=== PATIENT | female | born 2005 ===

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

== ENCOUNTER 2024-01-29 20:29 | Emergency (ER) | payer BC ==
[~2024-01-29] VITALS: Ht 152.4 cm; Wt 50.0 kg
[2024-01-29 20:44] VITALS: BP 100/63; TEMP 98
[2024-01-29] MEDS ORDERED: PREDNISONE20 MG PO (21:22)
[2024-01-29] MEDS ORDERED: ATARAX 25MG25 MG/TAB PO (21:22)
[2024-01-29] MEDS ORDERED: methylPREDNISolone Sod Succ 125 MG/2 ML VIAL IM ONE (21:30)
[2024-01-29] MEDS ORDERED: diphenhydrAMINE 50 MG/ML 1 ML VIAL IM ONE (21:30)
[2024-01-29 21:49] VITALS: PULSE 81
== END 2024-01-29 21:50 | disposition home or self-care (01) ==
LOC: COL.ER 20:29
DX: T78.40XA Allergy, unspecified, initial encounter (principal); X58.XXXA Exposure to other specified factors, initial encounter
CPT/HCPCS: J1200; J2919